=== PATIENT | male | born 1940 | race Caucasian/White ===

== ENCOUNTER 2018-03-16 22:26 | Emergency (ER) | payer MEDICARE, OTHER ==
--- NOTE | 2018-03-16 22:57 | ED Physician Documentation ---
General Adult - HISTORIAN Historian: patient, paramedics - HPI Stated Complaint: laceration Chief Complaint: Laceration/Recheck/Suture Additional Information: Patient, with dementia, presents to ED via EMS from [place] with laceration to forehead after falling out of bed yesterday morning at 0300. Patient sustained a small flap laceration and steri-strips were placed over the wound. Tonight the patient began picking at the site and it started bleeding. Patient takes ASA 325mg daily. Onset: hours (18 ) Timing: still present Severity: mild - ROS CONST: denies: fever EYES/ENT: denies: problems with vision, nasal drainage CVS/RESP: denies: chest pain, shortness of breath, cough GI/: denies: abdominal pain MS/SKIN/LYMPH: none - PAST HX Past History: other (dementia) Other History: none Surgeries/Procedures: none Allergies/Adverse Reactions: Allergies Allergy/AdvReac Type Severity Reaction Status Date / Time No Known Allergies Allergy Verified 03/16/18 23:32 - SOCIAL HX Smoking History: non-smoker Alcohol Use: none Drug Use: none - FAMILY HX Family History: No - REVIEWED ASSESSMENTS Nursing Assessment Reviewed: Yes Vitals Reviewed: Yes Procedures Wound Location: head Wound Length: 2mm x 3 mm Wound's Depth, Shape: flap Wound Explored: clean Betadine Prep?: Yes Anesthesia: Lidocaine w/ Epi Wound Debrided: minimal Wound Repaired With: sutures Suture Size/Type: 5:0 Number of Sutures: 3 Layer Closure?: No ED Results Lab/Radiology - Orders Orders: ED Orders Category Date Time Status Apply Steri-Strips 1T Care 03/16/18 23:30 Ordered Apply/change dressing BID Care 03/16/18 23:30 Ordered Diph,Pertuss(Acell),Tet Vac/Pf [Adacel] Med 03/16/18 23:32 Once 0.5 ml IM .ONCE ONE Lidocaine 1%/Epinephrine [Xylocaine 1%-EPI 1:100,000] Med 03/16/18 23:31 Once 1 ml IJ NOW ONE Oxymetazoline HCl [Afrin 0.05%] Med 03/16/18 22:53 Once 1 spray NS NOW ONE General Adult Physical Exam - PHYSICAL EXAM GENERAL APPEARANCE: no distress EENT: JIAN, other (3mm x 2mm flap laceration to center of forehead with bleeding. ) NECK: supple RESPIRATORY: no resp distress, breath sounds normal CVS: reg rate & rhythm, heart sounds normal ABDOMEN: soft, normal bowel sounds RECTAL: deferred BACK: normal inspection SKIN: warm/dry, normal color EXTREMITIES: non-tender NEURO: motor nml, mood/affect nml. No: facial droop Discharge Clincal Impression: Laceration Referrals: Primary Doctor,No [Primary Care Provider] - 2 Days Additional Instructions: HOLD Aspirin for 24 hours. Remove sutures in 10 days Condition: Stable Disposition: 04 [facility] Decision to Admit: NO Date of Decison to Admit: 03/16/18 Decision Time: 23:38
[2018-03-16] MEDS: OXYMETAZOLINE HCL 0.05% NASAL SPRAY NS ONE (23:01)
[2018-03-16] MEDS: LIDOCAINE 1%/EPINEPHRINE 20ML VIAL IJ ONE (23:35)
[2018-03-16] MEDS: DIPH,PERTUSS(ACELL),TET VAC/PF 0.5 ML DISP.SYRIN IM ONE (23:42)
[2018-03-17] MEDS: LORazepam 2 MG/ML VIAL IM ONE (01:00)
[2018-03-17] MEDS: LORazepam 2 MG/ML VIAL ONE (01:02)
[2018-03-17 01:07] VITALS: BP 120/62
== END 2018-03-17 01:03 ==
LOC: ED 22:26
DX: S01.81XA Laceration without foreign body of other part of head, initial encounter (principal); W19.XXXA Unspecified fall, initial encounter; Y92.122 Bedroom in nursing home as the place of occurrence of the external cause; Y93.9 Activity, unspecified; Y99.9 Unspecified external cause status
CPT/HCPCS: 90715; J2060; 12001; 90471; 96372; 99282